=== PATIENT | male | born 2000 | race Caucasian/White ===

== ENCOUNTER 2024-01-06 11:05 | Emergency (ER) | payer BC ==
[2024-01-06] MEDS: Lidocaine/Epineph/Tetracaine 3 ML Syringe TOP ONE (11:32)
[2024-01-06] MEDS: Lidocaine 1% 10 ML MDV INJECT ONE (11:32)
== END 2024-01-06 12:45 | disposition home or self-care (01) ==
LOC: JD.ED 11:05
DX: L02.31 Cutaneous abscess of buttock (principal); E10.9 Type 1 diabetes mellitus without complications; Z86.16 Personal history of COVID-19; Z79.4 Long term (current) use of insulin
CPT/HCPCS: 10060; 99283; A9270; J3490